=== PATIENT | male | born 1945 ===

== ENCOUNTER 2023-08-04 12:00 | Inpatient (IN) | payer OTHER ==
[~2023-08-04] VITALS: Ht 177.8 cm; Wt 90.7 kg
[2023-08-04] MEDS ORDERED: ZETIA10 MG PO (14:05)
[2023-08-04] MEDS ORDERED: CRESTOR40 MG PO (14:05)
[2023-08-04] MEDS ORDERED: ADULT LOW DOSE81 M1 PO (14:06)
[2023-08-04] MEDS ORDERED: JANUVIA100 MG PO (14:06)
[2023-08-04] MEDS ORDERED: CARDURA8 MG PO (14:06)
[2023-08-04] MEDS ORDERED: COZAAR50 MG PO (14:07)
[2023-08-04] MEDS ORDERED: NORVASC5 MG PO (14:07)
[2023-08-04] MEDS ORDERED: METFORMIN HCL500 M2 PO (14:07)
[2023-08-04] MEDS ORDERED: TROSPIUM CHLORI60 MG PO (14:08)
[2023-08-04] MEDS ORDERED: LEVOXYL137 MCG PO (14:08)
[2023-08-09] MEDS ORDERED: COLACE100 MG PO (09:17)
[2023-08-09] MEDS ORDERED: MEDROLPACK PO (09:17)
[2023-08-09] MEDS ORDERED: AMOX-CLAV 875-1 EACH PO (09:17)
[2023-08-09] MEDS ORDERED: GABAPENTIN100 M2 PO (09:18)
[2023-08-09] MEDS ORDERED: NEURONTIN800 MG PO (09:18)
[2023-08-09] MEDS ORDERED: PERCOCET 5-3251 EACH PO (09:21)
[2023-08-10 05:12] LABS: HEMATOCRIT 31.7 % (39.0-48.0); HEMOGLOBIN 10.5 g/dL (13-16.00); MEAN CELL VOLUME 92.8 fL (80.0-100.00); MEAN CORPUSCULAR HEMOGLOBIN 30.7 pg (27.00-32.0); MEAN CORPUSCULAR HGB CONC 33.1 g/dl (32.0-36.0); RED BLOOD COUNT 3.42 M/uL (4.00-6.00); RED CELL DISTRIBUTION WIDTH 14.7 % (11.5-14.5)
[2023-08-10 05:16] LABS: CALCIUM 8.3 mg/dL (8.5-10.1); CREATININE SERUM 0.93 mg/dL (0.70-1.30); GFR 78.58; POTASSIUM 4.44 mEq/L (3.5-5.1)
[2023-08-10 05:24] LABS: PLATELET COUNT 102 K/uL (150-450)
== END 2023-08-12 16:37 | disposition home or self-care (01) | DRG 455 ==
LOC: O/R 08-09 05:55 → SURG 08-09 11:30 → SURH 08-09 15:03
PROVIDERS: ADMIT Orthopaedic Surgery Orthopaedic Surgery of the Spine; ATTEND Orthopaedic Surgery Orthopaedic Surgery of the Spine
PROC: 0SG1071 Fusion of 2 or more Lumbar Vertebral Joints with Autologous Tissue Substitute, Posterior Approach, Posterior Column, Open Approach (ICD-10-PCS; 2023-08-09)
PROC: 0ST20ZZ Resection of Lumbar Vertebral Disc, Open Approach (ICD-10-PCS; 2023-08-09)
PROC: 0SG30A0 Fusion of Lumbosacral Joint with Interbody Fusion Device, Anterior Approach, Anterior Column, Open Approach (ICD-10-PCS; 2023-08-09)
PROC: 0SG3071 Fusion of Lumbosacral Joint with Autologous Tissue Substitute, Posterior Approach, Posterior Column, Open Approach (ICD-10-PCS; 2023-08-09)
PROC: 0QB30ZZ Excision of Left Pelvic Bone, Open Approach (ICD-10-PCS; 2023-08-09)
PROC: 07DR0ZZ Extraction of Iliac Bone Marrow, Open Approach (ICD-10-PCS; 2023-08-09)
PROC: 4A1104G Monitoring of Peripheral Nervous Electrical Activity, Intraoperative, Open Approach (ICD-10-PCS; 2023-08-09)
PROC: 0SG10A0 Fusion of 2 or more Lumbar Vertebral Joints with Interbody Fusion Device, Anterior Approach, Anterior Column, Open Approach (ICD-10-PCS; principal; 2023-08-09 11:30)
PROC: 4A12X4Z Monitoring of Cardiac Electrical Activity, External Approach (ICD-10-PCS; 2023-08-10)
DX: M48.062 Spinal stenosis, lumbar region with neurogenic claudication (principal); M48.07 Spinal stenosis, lumbosacral region; M51.36 Other intervertebral disc degeneration, lumbar region; M51.37 Other intervertebral disc degeneration, lumbosacral region; I10 Essential (primary) hypertension; E03.9 Hypothyroidism, unspecified; E11.9 Type 2 diabetes mellitus without complications